=== PATIENT | male | born 1960 | race Caucasian/White ===

== ENCOUNTER 2021-03-23 22:00 | Emergency (ER) | payer BC, OTHER ==
[~2021-03-23] VITALS: Ht 188 cm; Wt 137.8 kg
[~2021-03-23 22:00] MED LIST: HYDR-4383 PO; ONDA4TAB6 PO
[2021-03-23] MEDS ORDERED: oxymetazoline 15 ML nasal spray NS ONE (22:40)
[2021-03-23] MEDS ORDERED: silver nitrate applicator stick TP ONE (22:45)
[2021-03-23] MEDS ORDERED: cloNIDine 0.1 mg tablet PO ONE (22:55)
[2021-03-24 00:21] VITALS: BP 150/94
== END 2021-03-24 00:23 | disposition home or self-care (01) ==
LOC: ER 22:00
DX: R04.0 Epistaxis (principal)
CPT/HCPCS: 99283